=== PATIENT | female | born 1955 | race Caucasian/White ===

== ENCOUNTER → 2017-07-02 08:45 | Outpatient (CLI) | payer BC, SELFPAY ==
--- NOTE | 2017-07-02 08:51 | MM_ITS ---
MM Dig screening mamm BI w/CAD CAD Screening COMPARISON: None, this is baseline INDICATION: There is no personal or family history of breast cancer. TECHNIQUE: Standard CC and MLO images were obtained. R2 CAD reviewed. FINDINGS: Mild to moderate scattered fibroglandular densities are seen throughout both breasts. There are couple mole markers left breast. There is no suspicious lesion in either breast and there are no suspicious microcalcifications. There is a small benign-appearing nodular density upper outer quadrant left breast likely a microcyst or tiny fibroadenoma. However since is the baseline study recommend the patient return for ultrasound left breast to evaluate for cystic or solid nature of this lesion. IMPRESSION: Mild to moderate breast density with benign-appearing asymmetric density left breast BI-RADS Category: 0 Need Additional Imaging Evaluation RECOMMENDED FOLLOW-UP: IMM - IMMEDIATE FOLLOW-UP RECOMMENDED (A letter has been sent to the patient regarding results of the study.)
--- NOTE | 2017-07-02 08:52 | XR_ITS ---
XR chest 2V INDICATION: Chest wall pain COMPARISON: None FINDINGS: The lung velázquez are well expanded and appear clear of infiltrate. The cardiomediastinal silhouette and vascularity are normal. The costophrenic angles are clear. The bony thorax is normal. IMPRESSION: Normal chest.
== END ==
PROVIDERS: Family Provider Family Medicine; PCP Family Medicine; Visit Provider Family Medicine
DX: Z12.31 Encounter for screening mammogram for malignant neoplasm of breast (principal); R07.89 Other chest pain
CPT/HCPCS: 71046; 77067

== ENCOUNTER → 2017-07-19 10:52 | Outpatient (CLI) | payer BC, SELFPAY ==
--- NOTE | 2017-07-19 10:57 | US_ITS ---
US breast LT complete COMPARISON: Mammogram 07/02/2017 INDICATION: Follow-up abnormal mammogram ORDERING PHYSICIAN: Colt Huitron MD PATIENT AGE: 62 years TECHNIQUE: Left breast ultrasound with axilla FINDINGS: There is a 4 mm cyst at 1:00 however, this was near the nipple and the mammographic abnormality is lateral. There is a questionable cystic area at 10:00 at 6 mm. No suspicious solid nodules are evident. IMPRESSION: 2 left breast cysts neither of which correspond to the mammographic abnormality. No suspicious sonographic nodules BI-RADS Category: 3 Benign Finding Short Term Follow-up RECOMMENDED FOLLOW-UP: 6M - 6 MONTH FOLLOW-UP Suggest follow-up mammogram and ultrasound of the left breast in 6 months to confirm stability (A letter has been sent to the patient regarding results of the study.)
== END ==
PROVIDERS: Family Provider Family Medicine; PCP Family Medicine; Visit Provider Family Medicine
DX: R92.8 Other abnormal and inconclusive findings on diagnostic imaging of breast (principal)
CPT/HCPCS: 76641

== ENCOUNTER → 2018-02-15 12:16 | Outpatient (CLI) | payer BC, SELFPAY ==
--- NOTE | 2018-02-15 13:00 | MM_ITS ---
MM Dig mamm DX unilat LT CAD, US breast LT complete INDICATION: 6 month follow-up abnormal mammogram ORDERING PHYSICIAN: Colt Huitron MD PATIENT AGE: 62 years COMPARISON: None TECHNIQUE: Problem-solving views performed along with left breast ultrasound FINDINGS: There is average fibroglandular tissue. Benign-appearing nodular density once again noted in the lateral aspect of the left breast superiorly with a peripheral area of fat density consistent with an intramammary lymph node. Asymmetric fibroglandular tissue noted in the central aspect of the left breast. No malignant appearing mass or malignant appearing microcalcification. Left breast ultrasound: There is a 5 mm nodule in the 2:00 region of the left breast with hyper echogenicity centrally consistent with central fat within a lymph node as noted on the mammogram. No malignant appearing mass or malignant appearing microcalcification. IMPRESSION: Benign findings, no evidence of malignancy Recommend resume screening mammogram June 2018 BI-RADS Category: 2 Benign Finding(s) RECOMMENDED FOLLOW-UP: 6M - 6 MONTH FOLLOW-UP (A letter has been sent to the patient regarding results of the study.)
== END ==
PROVIDERS: PCP Family Medicine; Visit Provider Family Medicine
DX: R92.8 Other abnormal and inconclusive findings on diagnostic imaging of breast (principal)
CPT/HCPCS: 76641; 77065

== ENCOUNTER → 2018-07-20 08:47 | Outpatient (CLI) | payer BC, SELFPAY ==
--- NOTE | 2018-07-20 08:50 | MM_ITS ---
MM Dig screening mamm BI w/CAD CAD Screening COMPARISON: Digital mammograms with CAD 07/02/2017 and 6 month follow-up views left breast 02/15/2018 INDICATION: There is no personal or family history of breast cancer TECHNIQUE: Standard CC and MLO images were obtained. R2 CAD reviewed. FINDINGS: Moderate diffuse fiber glandular densities are seen throughout both breasts. Is a stable tiny a symmetric nodular density upper outer quadrant left breast. There is a mole marker left breast. There is no suspicious lesion and no suspicious microcalcifications. IMPRESSION: Moderate breast density with no suspicious lesion seen BI-RADS Category: 2 Benign Finding(s) RECOMMENDED FOLLOW-UP: 1YR - 1 YEAR FOLLOW-UP (A letter has been sent to the patient regarding results of the study.)
== END ==
PROVIDERS: PCP Family Medicine; Visit Provider Family Medicine
DX: Z12.31 Encounter for screening mammogram for malignant neoplasm of breast (principal)
CPT/HCPCS: 77067

== ENCOUNTER → 2021-07-28 09:48 | Outpatient (CLI) | payer BC, SELFPAY | PROVIDERS: Visit Provider Internal Medicine | DX: Z01.812 Encounter for preprocedural laboratory examination (principal); Z11.52 Encounter for screening for COVID-19; Z12.11 Encounter for screening for malignant neoplasm of colon | CPT/HCPCS: C9803; U0003; U0005 ==

== ENCOUNTER 2021-07-30 08:52 | Day surgery (SDC) | payer BC, SELFPAY ==
[2021-07-21 11:31] VITALS: BMI 26.0
[2021-07-30 09:46] VITALS: BP 135/69; PULSE 74; RESP 18; TEMP 36.7; O2SAT 98
--- NOTE | 2021-07-30 10:18 | P.PN_ITS ---
[facility] Anesthesia Checklist - Patient Identification Patient Identification: Arm Band, Verbal (Name & ) - Structural Data Admitted From: Home Planned Operative Procedure/s: Colonoscopy Consent for Planned Operative Procedure(s) Verified: Yes Verified Documents: Surgical Consent - Airway Assessment C-Spine Mobility Assessed: Yes TMJ Mobility Assessed: Yes Dentition: Good Dentition - Neurological Assessment Level of Consciousness: Awake, Alert, Appropriate - Anesthesia Plan Anesthesia Risk discussed: Yes ASA Class: II Anesthesia Type: MAC [facility] History I have reviewed the patient's past medical history: Yes Medical History: Reports:: Hypertension Denies:: Cancer, Diabetes Mellitus Type 1, Diabetes Mellitus Type 2, Internal Pacemaker, MRSA, Seizures *Have you ever received a pneumonia vaccine?: Yes *Have you received a flu vaccine this season?: Yes Anesthesia experience/problems:: no issues Other Surgeries: Yes: No Previous Surgery, Tubal Ligation. No: Pacemaker Amputation: No Fractures: No - *Social History Last grade of school completed: High school graduate Smoking Status: Never smoker Alcohol Intake: never Substance Use Type: denies use *Occupational Status:: employed Housing: house Household Members: spouse, family *Travel in the last 8 weeks: None Family Hx:: Hypertension, Diabetes
[2021-07-30 10:45] VITALS: O2SAT 98
--- NOTE | 2021-07-30 11:08 | HMH.SCOPE ---
- Procedure: Date: 07/30/21 Patient Date of :: 1955 Procedure Performed:: Colonoscopy Indications:: The patient is a 66 year old who presents for first time screening colonoscopy Performing Provider:: Zeferino Moss MD Referring Provider:: Jensen Deng MD Sedation:: See RN notes Procedure:: After placing the patient in the left lateral decubitus position, the colonoscopy was gently inserted into the rectum and under direct visualization advanced to the cecum which was identified by transillumination in the right lower quadrant, identification of the ileocecal valve, appendiceal orifice, and cecal strap. Color, texture, mucosa, and anatomy of the colon were carefully examined with the scope. Findings:: Anal canal: normal Rectum: Internal hemorrhoids Sigmoid colon: Sessile polyp less than 5 mm in size. Removed with snare polypectomy Descending colon: normal without polyps or inflammatory changes Splenic flexure: normal Transverse colon: normal without polyps or inflammatory changes Hepatic flexure: Three sessile polyps less than 5 mm in size. Removed with snare polypectomy Ascending colon: normal without polyps or inflammatory changes Cecum: normal Terminal ileum: not visualized Recommendations:: Await pathology results Repeat colonoscopy in 3 years Complications:: none Estimated blood obtained (mL): 0
[2021-07-30 11:18] VITALS: BP 95/44; PULSE 56; RESP 14; TEMP 36.4; O2SAT 98
[2021-07-30 11:28] VITALS: BP 118/61; PULSE 61; RESP 16; TEMP 36.4; O2SAT 98
[2021-07-30 11:38] VITALS: BP 120/70; PULSE 52; RESP 18; TEMP 36.4; O2SAT 98
[2021-07-30 11:55] VITALS: BP 142/76; PULSE 52; RESP 18; TEMP 36.4; O2SAT 98
== END 2021-07-30 11:55 | disposition home or self-care (01) ==
LOC: OUTP 08:52
PROVIDERS: PCP Family Medicine; Visit Provider Internal Medicine
PROC: 0DJD8ZZ Inspection of Lower Intestinal Tract, Via Natural or Artificial Opening Endoscopic (ICD-10-PCS; CPT 45378; principal; 2021-07-30 10:30)
DX: Z12.11 Encounter for screening for malignant neoplasm of colon (principal); K63.5 Polyp of colon; K64.9 Unspecified hemorrhoids; I10 Essential (primary) hypertension; Z82.49 Family history of ischemic heart disease and other diseases of the circulatory system; Z83.3 Family history of diabetes mellitus; Z88.2 Allergy status to sulfonamides; Z88.8 Allergy status to other drugs, medicaments and biological substances
CPT/HCPCS: 45385

== ENCOUNTER → 2021-08-05 09:27 | Outpatient (CLI) | payer BC, SELFPAY ==
--- NOTE | 2021-08-05 09:30 | XR_ITS ---
FINAL REPORT TECHNIQUE: Bone densitometry calculations of the lumbar spine and left hip were obtained. CLINICAL HISTORY: post menopausal FINDINGS: DEXA BONE DENSITY AXIAL SKELETON Using L1-4, the bone mineral density of the spine is 1.085 g/cm2, corresponding to T-score of 0.3. Using the left hip, the bone mineral density of the femoral neck is 0.703 g/cm2, corresponding to a T-score of -1.3. NOTE: T-score: Standard deviation compared with peak bone mass of young adult mean. *Following the recommendations of the International Society of Bone densitometry, classification of hip BMD is based on the lower of two T-scores; total hip or femoral neck. IMPRESSION: Diminished bone mineral density of the left hip consistent with osteopenia. FRAX 10 year fracture risk is 16% for major osteoporotic fracture. Reviewed, Interpreted and Dictated by Maik White MD Transcribed by Teresa Washburn Authenticated by Maik White MD on 08/05/2021 02:13:16 PM [facility]
== END ==
PROVIDERS: PCP Family Medicine; Visit Provider Family Medicine
DX: Z78.0 Asymptomatic menopausal state (principal)
CPT/HCPCS: 77080

== ENCOUNTER → 2021-11-05 09:31 | Outpatient (CLI) | payer BC, SELFPAY ==
--- NOTE | 2021-11-05 09:31 | MM_ITS ---
PROCEDURE INFORMATION: Exam: MG Bilateral Screening 3D Mammography Exam date and time: 11/05/2021 9:32 AM Age: 66 years old Clinical indication: Screening examination; Additional info: Screening xmg TECHNIQUE: Imaging protocol: Bilateral Screening tomosynthesis and 2D mammography including computer-aided detection (CAD) when performed. COMPARISON: 1. MG SCBI MM Dig screening mamm BI w/CAD 07/20/2018 9:13 AM 2. MG DXLT MM Dig mamm DX unilat LT CAD 02/15/2018 1:07 PM 3. MG SCBI MM Dig screening mamm BI w/CAD 07/02/2017 9:07 AM 4. BREASTLT US breast LT complete 02/15/2018 1:47 PM FINDINGS: MAMMOGRAPHY: Breast composition: There are scattered areas of fibroglandular density. Mass: Stable benign-appearing subcentimeter nodules are present in the left breast. No new or morphologically suspicious nodule has developed to suggest malignancy. Architectural distortion: No new or suspicious architectural distortion. Calcifications: No new or suspicious calcifications are present Asymmetric density: No new or suspicious asymmetric density is present Skin thickening: None. Axillary adenopathy: None. IMPRESSION: No mammographic evidence of malignancy. Recommend annual screening mammography unless otherwise clinically indicated. ASSESSMENT: BI-RADS category 2: Benign
== END ==
PROVIDERS: PCP Family Medicine; Visit Provider Obstetrics & Gynecology
DX: Z12.31 Encounter for screening mammogram for malignant neoplasm of breast (principal)
CPT/HCPCS: 77063; 77067

== ENCOUNTER → 2021-11-15 13:13 | Outpatient (CLI) | payer BC, SELFPAY | PROVIDERS: PCP Family Medicine; Visit Provider Family Medicine | DX: Z20.822 Contact with and (suspected) exposure to COVID-19 (principal) | CPT/HCPCS: C9803; U0003; U0005 ==

== ENCOUNTER → 2023-03-01 10:36 | Outpatient (CLI) | payer BC, SELFPAY ==
--- NOTE | 2023-03-01 10:40 | MM_ITS ---
PROCEDURE INFORMATION: Exam: MG Bilateral Screening 3D Mammography Exam date and time: 03/01/2023 10:51 AM Age: 67 years old Clinical indication: Screening mammogram. No personal or family history of breast cancer TECHNIQUE: Imaging protocol: Bilateral Screening tomosynthesis and 2D mammography including computer-aided detection (CAD) when performed. COMPARISON: 1. MG MM DIG SCREENING MAMM BI W/CAD 11/05/2021 9:32 AM 2. MG SCBI MM Dig screening mamm BI w/CAD 07/20/2018 9:13 AM 3. MG DXLT MM Dig mamm DX unilat LT CAD 02/15/2018 1:07 PM 4. MG SCBI MM Dig screening mamm BI w/CAD 07/02/2017 9:07 AM FINDINGS: MAMMOGRAPHY: Breast composition: There are scattered areas of fibroglandular density. Mass: None. Architectural distortion: No new or suspicious architectural distortion. Calcifications: Stable benign-appearing calcifications are present. No new or suspicious cluster of microcalcifications have developed. Asymmetric density: No new or suspicious asymmetric density is present Skin thickening: None. Axillary adenopathy: None. IMPRESSION: No mammographic evidence of malignancy. Recommend annual screening mammography unless otherwise clinically indicated. ASSESSMENT: BI-RADS category 2: Benign
== END ==
PROVIDERS: PCP Family Medicine; Visit Provider Family Medicine
DX: Z12.31 Encounter for screening mammogram for malignant neoplasm of breast (principal)
CPT/HCPCS: 77063; 77067

== ENCOUNTER 2023-05-07 19:18 | Outpatient (CLI) | payer BC, SELFPAY ==
[2023-05-07 18:04] LABS: Coronavirus 19, PCR Not Detected (NotDetected); Influenza A, PCR Not Detected (NotDetected); Influenza B, PCR Not Detected (NotDetected)
== END 2023-05-07 23:59 ==
LOC: LAB.DROPOF 19:19
PROVIDERS: PCP Student in an Organized Health Care Education/Training Program; Visit Provider Student in an Organized Health Care Education/Training Program
DX: R05.9 Cough, unspecified (principal)
CPT/HCPCS: 87636

== ENCOUNTER 2023-10-18 06:14 | Emergency (ER) | payer BC, MEDICARE, SELFPAY ==
[2023-10-18 06:16] VITALS: BP 210/100; PULSE 83; RESP 20; TEMP 36.6; O2SAT 98; BMI 31.2
--- NOTE | 2023-10-18 06:36 | ED_ITS ---
Discharge Plan Disposition Patient Disposition: Home, Self-Care Prescriptions Prescriptions: No Action lisinopril 10 mg tablet 10 mg PO DAILY 30 Days Qty: 30 prednisone 20 mg tablet 20 mg PO BID Qty: 10 0RF benzonatate 100 mg capsule 100 mg PO BID PRN (Reason: cough) Qty: 20 0RF Referrals Follow up/Referrals: Arturo Deng MD [Primary Care Provider] - See instructions Activity Restrictions/Add. Instructions Additional Instructions/Restrictions: Please follow-up with your primary care provider. Please return to the emergency department if you develop any new or worsening symptoms or become concerned for your health. Clinical Impressions Clinical Impression: Asymptomatic hypertension Discharge ED Provider: Jw Moran General Adult HPI General Chief complaint: PAIN Stated complaint: R arm pain for few days, high bp Time Seen by Provider: 10/18/23 06:25 Mode of Arrival: Ambulatory Source of Information: Patient Limitations: No Limitations Description of Symptoms (Recalled from ER Triage Doc. by RN): Pt presented to the ED for right upper arm pain and high BP. 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 She does not have pain at this time. Pt also checked her BP this morning and it was 190s systolic at home. She said she has a hx of HTN and take BP medication and thinks it may be up because she took an Aleve for her arm during the night. BP 210/100 on arrival. History of Present Illness HPI narrative: 68-year-old female with history of chronic hypertension presents with asymptomatic hypertension. She was previously on lisinopril and her blood pressure was well-controlled but she had a chronic cough. She was transition to losartan and HCTZ and since that time her blood pressure has been much more poorly controlled. She reports that it is worse in the morning and gets better in the evenings. She also reports some intermittent chronic right arm pain. She reports it is focal in nature, around the level of the mid upper arm. She took an Aleve for the pain last night. She reports that the pain in her arm does not seem to be correlated with her blood pressure. 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 She specifically denies any chest pain abdominal pain nausea vomiting shortness of breath headache vision changes etc. Related Data Home Medications Medication Instructions Recorded Confirmed lisinopril 10 mg tablet 10 mg PO DAILY htn 30 days ##30 12/08/17 05/07/23 Previous Rx's Medication Instructions Recorded benzonatate 100 mg capsule 100 mg PO BID PRN cough #20 caps 05/07/23 prednisone 20 mg tablet 20 mg PO BID #10 tabs 05/07/23 Allergies Allergy/AdvReac Type Severity Reaction Status Date / Time Xjombwd-ROW-SsH Reductase Allergy tongue Verified 05/07/23 08:38 Inhibitor swells, [Sjhyltg-Old-Opi Reductase muscle Inhibitor] spasms Sulfa (Sulfonamide Allergy Verified 05/07/23 08:38 Antibiotics) [facility] Disclaimer: The information contained in this section may have been updated after the patient was seen, as this information can be updated by other users. Medical History Hypertension Surgical History No significant past surgical history Family History Other No significant family history Social History Smoking Status: Never smoker second hand exposure: No alcohol intake: never substance use type: denies use current occupational status: employed Travel in the last 8 weeks: None household members: spouse and family housing: house current occupation: current occupational exposures/hazards: No caffeine: Yes ROS Obtained: Yes All systems reviewed & no additional complaints except as documented Physical Exam General General appearance: alert and in no apparent distress Head Head exam: atraumatic and normocephalic Eye Eye exam: Present normal appearance, PERRL and EOMI ENT ENT exam: Present normal oropharynx and normal external ear exam Neck Neck exam: Present normal inspection and full ROM Chest Chest inspection: Present normal inspection and symmetric chest wall rise; Absent tenderness Respiratory Respiratory exam: Present normal lung sounds bilaterally; Absent respiratory distress Cardiovascular Cardiovascular exam: Present regular rate and normal rhythm Abdominal Exam Abdominal exam: Present soft; Absent distention, tenderness or guarding Extremities Exam Extremities exam: Present normal inspection; Absent edema or joint swelling Back Exam Back exam: Present normal inspection; Absent tenderness Neurological Exam Neurological exam: Present alert and oriented X3; Absent motor sensory deficit Psychiatric Psychiatric exam: Present normal affect and normal mood Skin Skin exam: Present warm, dry and normal color Lymphatic Lymphatic Findings: no adenopathy Medical Decision Making Medical Records Medical records reviewed: Yes I reviewed the patient's medical records. Ramón Inquiry Pt receiving controlled substance: No Ramón was queried for this patient: No Vital Signs: 10/18/23 06:16 Temperature 97.9 F Temperature Source Oral Pulse Rate [Right Brachial] 83 Respiratory Rate 20 Blood Pressure [Right Arm] 210/100 H Blood Pressure Mean [Right Arm] 136 02 Sat by Pulse Oximetry 98 Oxygen Delivery Method Room Air Lab Data Lab results reviewed: Yes I reviewed the patient's lab results. Medical Decision Narrative: 68-year-old female with history of chronic hypertension presents with hypertension without any other symptoms. History was obtained interactive discussion with patient, chart review. On arrival, patient is [afebrile, hemodynamically stable, satting appropriately, alert, oriented x4, GCS 15], moving all extremities spontaneously. Full physical exam performed and significant for no physical exam abnormalities. Differential includes but is not limited to asymptomatic hypertension, hypertensive emergency, hypertensive urgency. Blood work and EKG was considered, but deemed unnecessary given patient is asymptomatic. Given patient history, exam and workup, patient's presentation most likely represents asymptomatic hypertension. She reports that she will call her PCP and discuss medication changes today. She was discharged in stable condition with return precautions. Procedures Risk/Benefits of Procedure(s) Were Explained: Yes Critical Care Critical Care Time Critical Care Time: No
[2023-10-18 06:38] VITALS: BP 209/87; PULSE 76; RESP 16; TEMP 36.7; O2SAT 100
== END 2023-10-18 06:43 | disposition home or self-care (01) ==
PROVIDERS: Emergency Provider Emergency Medicine; PCP Family Medicine
DX: M79.621 Pain in right upper arm (principal); I10 Essential (primary) hypertension
CPT/HCPCS: 99283

== ENCOUNTER 2024-04-25 08:13 | Outpatient (CLI) | payer BC, SELFPAY ==
--- NOTE | 2024-04-25 08:15 | MM_ITS ---
PROCEDURE INFORMATION: Exam: MG Bilateral Screening 3D Mammography Exam date and time: 04/25/2024 8:15 AM Age: 68 years old Clinical indication: Screening examination TECHNIQUE: Imaging protocol: Bilateral Screening tomosynthesis and 2D mammography including computer-aided detection (CAD) when performed. COMPARISON: 1. MG MM DIG SCREENING MAMM BI W/CAD 03/01/2023 10:51 AM 2. MG MM DIG SCREENING MAMM BI W/CAD 11/05/2021 9:32 AM FINDINGS: MAMMOGRAPHY: Breast composition: There are scattered areas of fibroglandular density. Mass: None. Architectural distortion: None. Calcifications: No suspicious calcifications. Asymmetric density: None. Skin thickening: None. Axillary adenopathy: None. IMPRESSION: No mammographic evidence of malignancy. Annual screening is recommended unless otherwise clinically indicated. ASSESSMENT: BI-RADS Category 1: Negative.
== END 2024-04-25 23:59 | disposition home or self-care (01) ==
LOC: RAD 08:13
PROVIDERS: PCP Family Medicine; Visit Provider Family Medicine
DX: Z12.31 Encounter for screening mammogram for malignant neoplasm of breast (principal)
CPT/HCPCS: 77063; 77067

== ENCOUNTER 2025-02-12 11:46 | Day surgery (SDC) | payer BC, SELFPAY ==
[2025-02-09 11:09] VITALS: BMI 33.2
--- NOTE | 2025-02-11 12:41 | EXP.HP ---
History of Present Illness *Admission Date: 02/12/25 *History of present illness: Mrs. Alcaraz is a 69-year-old female who is here for screening colonoscopy. The patient did have a colonoscopy in July 2021 (Zeferino Moss MD) and had 4 colon polyps removed (tubular adenomas x 4). It was recommended that she have a 3-year repeat surveillance colonoscopy. The examination is deemed medically necessary for screening/surveillance colonoscopy. The patient has been seen, interviewed and examined prior to the procedure by both myself and the anesthesia provider. [facility] Disclaimer: The information contained in this section may have been updated after the patient was seen, as this information can be updated by other users. Medical History Normal colonoscopy Hypertension Surgical History H/O hand surgery H/O tubal ligation Family History Father Family history of diabetes mellitus type II Social History Smoking Status: Never smoker second hand exposure: No alcohol intake: never substance use type: denies use current occupational status: employed Travel in the last 8 weeks?: None household members: spouse and family housing: house current occupation: [employer] current occupational exposures/hazards: No caffeine: Yes Have you lived/traveled outside [place] in past 30 days?: No Contact w/someone who lives/traveled outside US past 30 days?: No Exposure to someone with infectious disease in past 14 days?: No Do you have a fever (greater than 100.4 F or 38 C)?: No Have you tested positive for COVID-19?: No Exposed to someone with COVID-19 in past 14 days?: No Do you have a sore throat?: No Do you have a cough?: No Do you have any weakness?: No Do you have any diarrhea?: No Are you experiencing any unusual bleeding?: No Do you have any muscle aches/pain?: No Do you have any abdominal pain?: No Are you experiencing loss of taste or smell?: No Other Medical History Have you received the Flu Vaccine for this season: Yes Have you received the Pneumonia Vaccine: No Review of Systems Review of Systems Review of systems (narrative): Negative *Cardiovascular Comments: Negative *Gastrointestinal Comments: Negative *Genitourinary Comments: Negative *Musculoskeletal Comments: Negative *Neurologic Comments: Negative Meds Home Medications and Allergies Home Medications ?Medication ?Instructions ?Recorded ?Confirmed ?Type losartan 100 1 tab PO DAILY 02/09/25 02/12/25 History mg-hydrochlorothiazide 25 mg tablet New Prescriptions to Start Prescriptions: Allergies Allergy/AdvReac Type Severity Reaction Status Date / Time Aojdvid-KZO-TpC Reductase Allergy tongue Verified 02/12/25 12:06 Inhibitor (Yjvcmlz-Jwf-Omk swells, Reductase Inhibitor) muscle spasms Sulfa (Sulfonamide Allergy Nausea Verified 02/12/25 12:06 Antibiotics) Exam Data for Last 24 hours I & O for Last 24 hours: Intake & Output 02/08/25 02/09/25 02/10/25 02/11/25 23:59 23:59 23:59 23:59 Weight 170 lb *Routine HEENT Exam Head: Present normocephalic Eye: Present EOMI and PERRL ENT: Present mucous membranes moist *Routine Neck Exam Neck: Present supple *Routine Respiratory Exam Respiratory: Present CTA bilaterally *Routine Cardiovascular Exam Cardiovascular: Present RRR *Routine Abdominal Exam Abdominal: Present soft and normoactive bowel sounds; Absent tenderness *Routine Rectal Exam Rectal:: deferred *Routine Genitalia Exam Genitalia:: deferred *Routine Extremities Exam Extremities: Absent cyanosis, clubbing or edema *Routine Skin Exam Skin: Present warm; Absent rash *Routine Neurological Exam Neurological: Present alert and oriented X3 Assessment and Plan *Assessment and plan (1) Personal history of adenomatous and serrated colon polyps: Status: Acute Category: Medical Code(s): Z86.0101 - Personal history of adenomatous and serrated colon polyps (2) Screening for colon cancer: Status: Acute Category: Medical Code(s): Z12.11 - Encounter for screening for malignant neoplasm of colon Plan A/P: 1. Personal history of adenomatous colon polyps is the preprocedural diagnosis. The patient will be anesthetized/sedated using MAC sedation. The patient has been seen and examined. Cardiac and lung assessment prior to the examination is stable. Proceed with planned screening colonoscopy.
--- NOTE | 2025-02-12 06:44 | HMH.PROCNOTE ---
[facility] Procedure Note Date: 02/12/25 Time: 13:12 Procedure Note:: Colonoscopy Procedure Report: Colonoscopy with cold snare polypectomy Endoscopist: Mohit Pisano II, MD Referring physician: Jensen Deng MD Date of Procedure: February 12, 2025 Equipment: Olympus [id number] adult colonoscope Sedation: MAC sedation Indication: Mrs. Alcaraz is a 69-year-old female who is here for screening colonoscopy. The patient did have a colonoscopy in July 2021 (Zeferino Moss MD) and had 4 colon polyps removed (tubular adenomas x 4). It was recommended that she have a 3-year repeat surveillance colonoscopy. The patient reports no abdominal pain, weight loss, change in her bowel habits or rectal bleeding. She does state that her maternal grandfather had colon cancer. The examination is deemed medically necessary for screening/surveillance colonoscopy. Procedure: Prior to the procedure, a history and physical exam was performed, and patient's medications and allergies were reviewed. The risks, benefits and alternatives of the sedation and procedure were discussed with the patient. All questions were answered and informed consent was obtained. The patient was brought to the procedure room. Patient identification and proposed procedure were verified by the physician and the nurse. The patient was placed in a left lateral decubitus position and the scope was passed under direct vision. Throughout the procedure, the patient's blood pressure, pulse, and oxygen saturations were monitored continuously. The colonoscopy was accomplished without difficulty. The patient tolerated the procedure well. Findings: On digital rectal examination there was normal rectal tone. There were no external hemorrhoids. The colonoscope was introduced through the anal canal to the rectum and advanced to the cecum. The ileocecal valve and appendiceal orifice were identified. The scope was advanced a short distance into the ileum which appeared grossly normal. The scope was then withdrawn into the colon. There were 4 colon polyps (ascending x 1 (7 to 8 mm) and transverse x 3 (3, 3 and 3 mm)). These were all removed via cold snare polypectomy. The remaining cecum, ascending and transverse colon and mucosa were grossly normal. There were scattered diverticuli throughout the descending and sigmoid colon (LEFT colon). The rectum itself was normal. Upon retroflexion within the rectum there were grade 1-2 internal hemorrhoids. The preparation was excellent throughout with [place] Preparation Score of 9. The cecal time was 14 minutes. Impression: 1. Colonic polyps x 4 2. Left-sided diverticulosis 3. Grade 1-2 internal hemorrhoids Plan: I will follow-up the polyp histology and recommend repeat screening/surveillance colonoscopy again in 5 years. I would encourage psyllium bulking fiber supplementation on a maintenance basis.
[2025-02-12] MEDS: LACTATED RINGERS 1000ML 1,000 ML 50 ML IV (12:06)
[2025-02-12 12:07] VITALS: BP 155/88; PULSE 92; RESP 16; TEMP 36.3; O2SAT 98
--- NOTE | 2025-02-12 12:28 | P.PNANES_ITS ---
[facility] Disclaimer: The information contained in this section may have been updated after the patient was seen, as this information can be updated by other users. Medical History Normal colonoscopy Hypertension Surgical History H/O hand surgery H/O tubal ligation Family History Father Family history of diabetes mellitus type II Social History Smoking Status: Never smoker second hand exposure: No alcohol intake: never substance use type: denies use current occupational status: employed Travel in the last 8 weeks?: None household members: spouse and family housing: house current occupation: [employer] current occupational exposures/hazards: No caffeine: Yes Have you lived/traveled outside [place] in past 30 days?: No Contact w/someone who lives/traveled outside [place] past 30 days?: No Exposure to someone with infectious disease in past 14 days?: No Do you have a fever (greater than 100.4 F or 38 C)?: No Have you tested positive for COVID-19?: No Exposed to someone with COVID-19 in past 14 days?: No Do you have a sore throat?: No Do you have a cough?: No Do you have any weakness?: No Do you have any diarrhea?: No Are you experiencing any unusual bleeding?: No Do you have any muscle aches/pain?: No Do you have any abdominal pain?: No Are you experiencing loss of taste or smell?: No [facility] Anesthesia Checklist Patient Identification Patient Identification: Arm Band and Verbal (Name & ) Structural Data Admitted From: Home Planned Operative Procedure/s: colonscopy Consent for Planned Operative Procedure(s) Verified: Yes Verified Documents: Surgical Consent and History and Physical NPO Status Verified Time NPO: 00:00 Additional verifications Patient : No Anesthesia Reactions: No Previous Colonoscopy: Yes Airway Assessment Mallampati Score:: Class II Dentition: Good Dentition Neurological Assessment Level of Consciousness: Awake, Alert and Appropriate Anesthesia Plan Anesthesia Risk discussed: Yes Anesthesia Plan: Verified ASA Class: II Anesthesia Type: MAC
[2025-02-12 13:14] VITALS: BP 83/44; PULSE 75; RESP 16; TEMP 36.3; O2SAT 93
[2025-02-12 13:24] VITALS: BP 85/61; PULSE 80; RESP 16; O2SAT 96
[2025-02-12 13:34] VITALS: BP 110/67; PULSE 85; RESP 18; O2SAT 96
[2025-02-12 13:38] VITALS: BP 114/52; PULSE 75; RESP 18; O2SAT 98
== END 2025-02-12 13:47 | disposition home or self-care (01) ==
PROVIDERS: PCP Family Medicine; Visit Provider Internal Medicine Gastroenterology
PROC: 0DJD8ZZ Inspection of Lower Intestinal Tract, Via Natural or Artificial Opening Endoscopic (ICD-10-PCS; CPT 45378; principal; 2025-02-12 13:30)
DX: Z12.11 Encounter for screening for malignant neoplasm of colon (principal); K57.30 Diverticulosis of large intestine without perforation or abscess without bleeding; D12.2 Benign neoplasm of ascending colon; K64.1 Second degree hemorrhoids; Z86.0101 Personal history of adenomatous and serrated colon polyps; I10 Essential (primary) hypertension; Z79.899 Other long term (current) drug therapy; Z88.8 Allergy status to other drugs, medicaments and biological substances; Z88.2 Allergy status to sulfonamides
CPT/HCPCS: 45385; J2003; J2704; J7120